=== PATIENT | female | born 1930 | race Caucasian/White ===

== ENCOUNTER 2017-04-11 15:15 | Emergency (ER) | payer MEDICARE, BC ==
--- NOTE | 2017-04-11 16:58 | RAD ---
AP VIEW CHEST: INDICATIONS: The patient feels like something is stuck in her throat after eating lunch. COMPARISON: Prior exam dated 06/01/2014. FINDINGS: There is a small hiatal hernia. Heart size is within normal limits. Lungs are clear. No radiopaque foreign body is grossly evident. 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 There are scattered vascular calcifications. There are post surgical changes involving the right shoulder, con sistent with prior rotator cuff. There is stable thoracolumbar scoliosis. IMPRESSION: 1. Small hiatal hernia. 2. No radiopaque foreign body demonstrated. 3. No definite acute cardiopulmonary abnormality. POS: [facility]
== END 2017-04-11 17:37 | disposition home or self-care (01) ==
LOC: ERS 15:15
DX: K22.2 Esophageal obstruction (principal); I10 Essential (primary) hypertension; E03.9 Hypothyroidism, unspecified
CPT/HCPCS: 71020

== ENCOUNTER 2017-05-11 15:31 | Emergency (ER) | payer MEDICARE, BC ==
--- NOTE | 2017-05-11 16:17 | RAD ---
RIGHT HIP TWO VIEWS: History: Fall, right hip pain. FINDINGS: There is a questionable fracture involving the subcapital region of the neck of the right femur. This should be better evaluated with a CT scan. Code T POS: [facility]
[2017-05-11 17:20] LABS: #Basophils 0.1 thou/uL (0.0-0.2); #Eosinphils 0.1 thou/uL (0.0-0.7); #Lymphocytes 0.7 thou/uL (1.20-3.40); #Monocytes 0.3 thou/uL (0.11-0.59); #Neutrophils 3.6 thou/uL (1.40-6.50); %Eosinophils 1.7 % (0.0-10.0); %Monocytes 6.2 % (0.0-10.0); %Neutrophils 76.1 % (42.0-75.0); Hemoglobin 12.2 g/dL (12.0-16.0); Mean Corpuscular HGB CONC 33.7 g/dL (32.0-36.0); Mean Platelet Volume 6.9 fL (7.4-10.4); Platelet Count 198 thou/uL (130-400); RBC Distribution Width 11.5 % (11.5-14.5); Red Blood Cell (RBC) Count 3.79 mill/uL (4.20-5.40); White Blood Cell (WBC) Count 4.8 thou/uL (4.8-10.8)
[2017-05-11] MEDS ORDERED: Fentanyl 100 MCG/2 ML VIAL ONE (17:29)
[2017-05-11] MEDS ORDERED: Ondansetron HCl/PF 4 MG/2 ML Vial ONE (17:29)
[2017-05-11 17:48] LABS: ALT (SGPT) 12 U/L (8-55); AST (SGOT) 17 U/L (5-34); Albumin 3.8 g/dL (3.4-4.8); Alkaline Phosphatase 87 U/L (40-150); Anion Gap 11 mmol/L (10-20); BUN (Urea Nitrogen) 23 mg/dL (9.8-20.1); Bilirubin, Total 0.4 mg/dL (0.2-1.2); Calc. Creatinine Clearance 0 mL/min (70-130); Calcium 9.1 mg/dL (7.8-10.44); Carbon Dioxide 28 mmol/L (23-31); Chloride 105 mmol/L (98-107); Estimated GFR-MDRD 52; Globulin 2.4 g/dL (2.4-3.5); Glucose 115 mg/dL (83-110); Potassium 3.8 mmol/L (3.5-5.1); Protein, Total 6.2 g/dL (6.0-8.3); Sodium 140 mmol/L (136-145)
[2017-05-11 17:50] LABS: CKMB 1.4 ng/mL (0-6.6); Troponin I 0.014 ng/mL (< 0.028)
--- NOTE | 2017-05-11 19:00 | RAD ---
FRONTAL RADIOGRAPH PORTABLE UPRIGHT 05/11/17 COMPARISON: 04/11/17 HISTORY: Fracture, preoperative patient. FINDINGS: There is a mild degree of S-shaped scoliotic curvature of the thoracic spine and thoracolumbar juncti on. There is no pneumothorax, pleural fluid, focal consolidation, or alveolar edema. Rounded density at the level of the diaphragmatic hiatus suggests a probable underlying small hiatal hernia. IMPRESSION: Chronic findings as detailed above. No acute findings are seen. POS: [facility]
--- NOTE | 2017-05-11 19:19 | CT ---
CT OF RIGHT HIP PERFORMED WITHOUT CONTRAST ENHANCEMENT: 05/11/17 HISTORY: Right hip pain status post fall. COMPARISON: 05/11/17 plain film examination. The bones are demineralized. This increases the possibility of an occult fracture. The SI joint is no rmal in appearance. Some minimal arthritic changes of the right hip. I do not see a definitive fractu re. Minimal undulation to the cortex along the lateral margin of the femoral head and neck junction i s seen but no definite fracture line. The superior and inferior pubic rami are intact. Symphysis is n ormal in appearance. IMPRESSION: No definitive signs of fracture. Given the degree of bony demineralization, if there is a continued h igh clinical suspicion that there is a fracture, then MRI would be suggested for assessment. There is some very subtle irregularity to the cortex along the lateral margin of the femoral head and neck ju nction but no definitive fracture line. POS: [facility]
== END 2017-05-11 22:48 ==
LOC: ERS 15:31
DX: S72.001A Fracture of unspecified part of neck of right femur, initial encounter for closed fracture (principal); E78.00 Pure hypercholesterolemia, unspecified; E03.9 Hypothyroidism, unspecified; I10 Essential (primary) hypertension; Z79.82 Long term (current) use of aspirin; Z79.899 Other long term (current) drug therapy; W01.0XXA Fall on same level from slipping, tripping and stumbling without subsequent striking against object, initial encounter
CPT/HCPCS: 36415; 51702; 71045; 80053; 82553; 83880; 84484; 85025; 86850; 86900; 86901; 96374; 96375; J2405; J3010

== ENCOUNTER 2018-04-07 11:12 | Outpatient (CLI) | payer MEDICARE, BC | END 2018-04-07 11:13 | disposition home or self-care (01) | LOC: BICMAMMO 11:12 | PROVIDERS: ATTEND Internal Medicine | DX: Z12.31 Encounter for screening mammogram for malignant neoplasm of breast (principal) | CPT/HCPCS: 77063; 77067 ==

== ENCOUNTER 2019-03-11 22:41 | Emergency (ER) | payer MEDICARE, BC ==
[2019-03-12 00:09] LABS: Bacteria/HPF None Seen HPF (None Seen); Bilirubin Negative (Negative); Blood, Urine Negative (Negative); Clarity Clear (Clear); Glucose, Urine (Dipstick) Normal (Negative); Leukocyte 250 Leu/uL (Negative); Mucous/LPF Rare LPF (<2+); Nitrite Negative (Negative); Protein, Urine (Dipstick) Negative (Neg-Trace); RBC/HPF 0-3 HPF (0-3); Squamous Epithelial 0-3 HPF (0-3); Urobilinogen Normal mg/dL (Less than 2)
[2019-03-12] MEDS ORDERED: Ondansetron ODT 8 MG TAB ONE (02:04)
[2019-03-12 02:25] LABS: #Lymphocytes 0.9 thou/uL (1.20-3.40); #Monocytes 0.2 thou/uL (0.11-0.59); #Neutrophils 4.2 thou/uL (1.40-6.50); %Basophils 0.1 % (0.0-1.0); %Eosinophils 0.5 % (0.0-10.0); %Lymphocytes 16.8 % (21.0-51.0); %Monocytes 4.3 % (0.0-10.0); %Neutrophils 78.3 % (42.0-75.0); Hemoglobin 12.7 g/dL (12.0-16.0); Mean Corpuscular HGB CONC 35.1 g/dL (32.0-36.0); Mean Corpuscular Hemoglobin 31.8 pg (27.0-31.0); Mean Corpuscular Volume 90.7 fL (78.0-98.0); Mean Platelet Volume 6.9 fL (7.4-10.4); Platelet Count 196 thou/uL (130-400); RBC Distribution Width 11.9 % (11.5-14.5); Red Blood Cell (RBC) Count 3.99 mill/uL (4.20-5.40); White Blood Cell (WBC) Count 5.3 thou/uL (4.8-10.8)
[2019-03-12 02:35] LABS: ALT (SGPT) 14 U/L (8-55); AST (SGOT) 17 U/L (5-34); Albumin 4.2 g/dL (3.4-4.8); Alkaline Phosphatase 79 U/L (40-110); Anion Gap 12 mmol/L (10-20); BUN (Urea Nitrogen) 15 mg/dL (9.8-20.1); Bilirubin, Total 0.7 mg/dL (0.2-1.2); Calc. Creatinine Clearance 0 mL/min (70-130); Carbon Dioxide 27 mmol/L (23-31); Chloride 102 mmol/L (98-107); Estimated GFR-MDRD 64; Globulin 2.7 g/dL (2.4-3.5); Glucose 107 mg/dL (83-110); Potassium 4.2 mmol/L (3.5-5.1); Protein, Total 6.9 g/dL (6.0-8.3); Sodium 137 mmol/L (136-145)
== END 2019-03-12 03:18 | disposition home or self-care (01) ==
LOC: ERS 22:41
DX: R11.0 Nausea (principal); I10 Essential (primary) hypertension; E03.9 Hypothyroidism, unspecified; Z79.899 Other long term (current) drug therapy
CPT/HCPCS: 36415; 80053; 81003; 81015; 84484; 85025; 87086; 93005

== ENCOUNTER 2019-04-10 09:48 | Outpatient (CLI) | payer MEDICARE, BC ==
--- NOTE | 2019-04-10 14:36 | MMO ---
Bilateral MAMMO Bilat Screen [facility]. CLINICAL HISTORY: Patient is 88 years old and is seen for screening. The patient has no family history of breast cancer. The patient has no personal history of cancer. VIEWS: The views performed were: bilateral craniocaudal with tomosynthesis and bilateral mediolateral oblique with tomosynthesis. FILMS COMPARED: The present examination has been compared to prior imaging studies performed at [facility] on 02/13/2015, 02/17/2016, 02/17/2017 and 04/07/2018. This study has been interpreted with the assistance of computer-aided detection. MAMMOGRAM FINDINGS: The breasts are heterogeneously dense, which could obscure a lesion on mammography. There are no suspicious masses, suspicious calcifications, or new areas of architectural distortion. IMPRESSION: THERE IS NO MAMMOGRAPHIC EVIDENCE OF MALIGNANCY. A ROUTINE FOLLOW-UP MAMMOGRAM IN 1 YEAR IS RECOMMENDED. THE RESULTS OF THIS EXAM WERE SENT TO THE PATIENT. ACR BI-RADS Category 1 - Negative MAMMOGRAPHY NOTE: 1. A negative mammogram report should not delay a biopsy if a dominant of clinically suspicious mass is present. 2. Approximately 10% to 15% of breast cancers are not detected by mammography. 3. Adenosis and dense breasts may obscure an underlying neoplasm. Reported by: IVY DE DIOS MD Electonically Signed: [id number]
== END 2019-04-10 09:49 | disposition home or self-care (01) ==
LOC: BICMAMMO 09:48
PROVIDERS: ATTEND Internal Medicine
DX: Z12.31 Encounter for screening mammogram for malignant neoplasm of breast (principal)
CPT/HCPCS: 77063; 77067

== ENCOUNTER 2020-05-09 13:41 | Outpatient (CLI) | payer MEDICARE, BC ==
--- NOTE | 2020-05-09 15:16 | MMO ---
Bilateral MAMMO Bilat Screen [facility]. CLINICAL HISTORY: Patient is 89 years old and is seen for screening. The patient has no family history of breast cancer. The patient has no personal history of cancer. VIEWS: The views performed were: bilateral craniocaudal with tomosynthesis and bilateral mediolateral oblique with tomosynthesis. FILMS COMPARED: The present examination has been compared to prior imaging studies performed at [facility] on 02/17/2016, 02/17/2017, 04/07/2018 and 04/10/2019. This study has been interpreted with the assistance of computer-aided detection. MAMMOGRAM FINDINGS: The breasts are heterogeneously dense, which could obscure a lesion on mammography. There are no suspicious masses, suspicious calcifications, or new areas of architectural distortion. IMPRESSION: THERE IS NO MAMMOGRAPHIC EVIDENCE OF MALIGNANCY. A ROUTINE FOLLOW-UP MAMMOGRAM IN 1 YEAR IS RECOMMENDED. THE RESULTS OF THIS EXAM WERE SENT TO THE PATIENT. ACR BI-RADS Category 1 - Negative MAMMOGRAPHY NOTE: 1. A negative mammogram report should not delay a biopsy if a dominant of clinically suspicious mass is present. 2. Approximately 10% to 15% of breast cancers are not detected by mammography. 3. Adenosis and dense breasts may obscure an underlying neoplasm. Reported by: IVY DE DIOS MD Electonically Signed: [id number]
== END 2020-05-09 13:42 | disposition home or self-care (01) ==
LOC: BICMAMMO 13:41
PROVIDERS: ATTEND Internal Medicine
DX: Z12.31 Encounter for screening mammogram for malignant neoplasm of breast (principal)
CPT/HCPCS: 77063; 77067

== ENCOUNTER 2021-05-13 10:57 | Outpatient (CLI) | payer MEDICARE, BC | END 2021-05-13 10:58 | disposition home or self-care (01) | LOC: BICMAMMO 10:57 | PROVIDERS: ATTEND Internal Medicine | DX: Z12.31 Encounter for screening mammogram for malignant neoplasm of breast (principal) | CPT/HCPCS: 77063; 77067 ==